=== PATIENT | male | born 1965 | race Caucasian/White ===

== ENCOUNTER 2024-10-25 19:55 | Observation (INO) | payer SELFPAY ==
[~2024-10-25] VITALS: Ht 188 cm; Wt 126.5 kg
[2024-10-25 20:20] LABS: BASOPHILS 0.5 % (0.2-1.2); EOSINOPHILS 1.3 % (0.8-7.0); LYMPHOCYTES 20.0 % (21.8-53.1); MCH 30.6 PG (25.7-32.2); MCHC 33.0 g/dL (32.3-36.5); MCV 92.7 fL (79.0-92.2); MONOCYTES 6.3 % (5.3-12.2); NEUTROPHILS 71.5 % (34.0-67.9); RBC 4.09 M/uL (4.63-6.08)
[2024-10-25] MEDS ORDERED: AMLODIPINE BESYLATE 5 MG TAB PO ONE (20:45)
[2024-10-25 20:50] LABS: ALT (SGPT) 19.0 U/L (14-59); AST (SGOT) 17.0 U/L (15-37); GLOMERULAR FILTRATION RATE,EST 70.0 mL/min (>60); PROTEIN, TOTAL 7.4 g/dL (6.4-8.2); UREA NITROGEN 15.0 mg/dL (7-18)
[2024-10-25 20:52] LABS: BLOOD/HGB, URINE NEGATIVE (Negative); KETONE, URINE NEGATIVE (Negative); LEUK ESTERASE, URINE NEGATIVE (negative); NITRITE, URINE NEGATIVE (negative)
[2024-10-25 21:03] LABS: AMPHETAMINES, URINE NEGATIVE (NEGATIVE); BARBITURATES, URINE NEGATIVE (NEGATIVE); BENZODIAZEPINE, URINE NEGATIVE (NEGATIVE); CANNABINOID, URINE NEGATIVE (NEGATIVE); COCAINE, URINE NEGATIVE (NEGATIVE); ECSTASY, URINE NEGATIVE (NEGATIVE); FENTANYL, URINE NEGATIVE (NEGATIVE); METHADONE, URINE NEGATIVE (NEGATIVE); OPIATES, URINE NEGATIVE (NEGATIVE); OXYCODONE, URINE NEGATIVE (NEGATIVE); PHENCYCLIDINE, URINE NEGATIVE (NEGATIVE)
[2024-10-25] MEDS ORDERED: ASPIRIN 81 MG CHEW PO ONE (22:30)
[2024-10-26] VITALS (14 sets, daily range): BP systolic 105–184; BP diastolic 57–108
[2024-10-26] MEDS ORDERED: COLCHICINE 0.6 MG TAB PO ONE (01:30)
[2024-10-26] MEDS ORDERED: AMOXICILLIN/CLAVULANATE K 875 MG TAB PO ONE (02:00)
[2024-10-26] MEDS ORDERED: HEParin SOD (PORCINE) 5,000 UNIT/ML SYR IV PRN ×3 (02:15)
[2024-10-26] MEDS ORDERED: HEPARIN SOD,PORK IN 0.45% NACL 500 ML IV SCH (02:15)
[2024-10-26] MEDS ORDERED: ACETAMINOPHEN 325 MG TAB PO PRN ×2 (02:30→11:00)
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
--- NOTE | 2024-10-26 04:00 | NUR ---
PATIENT PROVIDED WITH SANDWICH BOX PER REQUEST. PATIENT ICE WATER FILLED. PATIENT VITAL SIGNS STABLE AT THIS TIME. PATIENT UPDATED ON PLAN OF CARE. NO NEEDS AT THIS TIME. CALL LIGHT IN REACH.
--- NOTE | 2024-10-26 05:30 | NUR ---
PATIENT RESTING IN BED WITH EYES CLOSED, RESPIRATIONS EVEN AND UNLABORED. PATIENT REMAINS ON ROOM AIR TOLERTING WELL. PATIENT VITAL SIGNS STABLE. NO NEEDS AT THIS TIME. CALL LIGHT IN REACH.
--- NOTE | 2024-10-26 06:40 | NUR ---
PATIENT UP TO BATHROOM TO VOID. PATIENT STEADY ON FEET. PATIENT DENIES ANY DIZZINESS OR FEELING LIGHT HEADED. PATIENT BACK TO BED. PATIENT HAS NO FURTHER NEEDS AT THIS TIME. CALL LIGHT IN REACH.
[2024-10-26] MEDS ORDERED: LEVOTHYROXINE SODIUM 125 MCG TAB PO SCH (07:00)
[2024-10-26] MEDS ORDERED: AMLODIPINE BESYLATE 5 MG TAB PO SCH (09:00)
--- NOTE | 2024-10-26 09:37 | NUR ---
PATIENT HEADED DOWN FOR MRI OF BRAIN. PT TAKEN OFF HEPARIN GTT AND OFF MONITOR FOR MRI- MD AWARE. PT DOES NOT HAVE ANY DEFICITS CONCERNING FOR A STROKE AT THIS TIME. PT REPORTS FEELING MUCH BETTER TODAY COMPARED TO YESTERDAY. PT'S TOE ON LEFT FOOT, 2ND TOE IS VERY LARGE, SWOLLEN AND DISCOLORED. PT REPORTS HAVING TROUBLES WITH THIS FOR THE LAST YEAR OR LONGER EVEN.
[2024-10-26] MEDS ORDERED: PHARMACY RENAL DOSE ADJUSTMENT 1 DOSE MISC PO SCH (12:00)
--- NOTE | 2024-10-26 12:26 | NUR ---
PATIENT WILL TRANSITION OFF THE HEPARIN GTT AND GO ONTO XARELTO. PENDING PHARMACY DOSING. PT'S MRI DONE AND RESULTS IN CHART. PT WILL TRANSFER TO ROOM 122 AFTER HE COMES OFF HEPARIN GTT. PT NOW ON TELE #1. WILL CONTINUE TO MONITOR. PT REMAINS A CONFIDENTIAL PATIENT PER HIS REQUEST.
--- NOTE | 2024-10-26 12:47 | NUR ---
HEPARIN GTT TAKEN OFF AT THIS TIME AND PO XARELTO TO BE GIVEN. PT WILL TRANSFER TO ROOM 122.
[2024-10-26] MEDS ORDERED: ZESTRIL40 MG PO (12:48)
[2024-10-26] MEDS ORDERED: NORVASC5 MG PO (12:48)
[2024-10-26] MEDS ORDERED: LEVO-T125 MCG PO (12:49)
[2024-10-26] MEDS ORDERED: HYDROXYZINE PA100 MG PO (12:50)
[2024-10-26] MEDS ORDERED: ALLOPURINOL300 MG PO (12:51)
[2024-10-26] MEDS ORDERED: IBUPROFEN800 MG PO (12:52)
--- NOTE | 2024-10-26 12:55 | NUR ---
medications reconciled interviewing patient
--- NOTE | 2024-10-26 13:27 | NUR ---
U/S SOUND IN ROOM AT THIS TIME AND DOING U/S OF LEFT LEG. PT WILL THEN MOVE TO ROOM 122.
--- NOTE | 2024-10-26 13:45 | NUR ---
REPORT RECEIVED FROM DANIEL CCU RN. PT AMBULATES FROM CCU RM 130 TO M/S 122 WITH STEADY GAIT, ENDORSES MILD LIGHT-HEADEDNESS UNCHANGED FROM WHAT HE HAS BEEN EXPERIENCING. THIS RN REMAINS IN ROOM FOR ASSESSMENT AND VS.
--- NOTE | 2024-10-26 14:00 | NUR ---
ASSESSMENT COMPLETED. VS OBTAINED. PT RESTING IN BED ON HIS CELL PHONE AT THIS TIME. NO REQUESTS. CALL LIGHT IN REACH.
[2024-10-26] MEDS ORDERED: LABETALOL HCL 20 MG/4 ML VIAL IV PRN (14:15)
--- NOTE | 2024-10-26 14:16 | NUR ---
UR CLINICAL REVIEW: RANI, MEETS INPT FOR TIA BP 190'S/120'S, IV HEPARIN INITIATED THROUGH NIGHT MEDICAID PENDING INPT 10/26/2024 @ 1057 ORDER MATCHES REG NO AUTH DUE TO MEDICAID STATUS PENDING PLAN TO DC TO HOME TOMORROW. 10/31/2024
--- NOTE | 2024-10-26 15:13 | NUR ---
PT RESTING IN BED WITH EYES CLOSED, MOUTH OPEN, RR EVEN AND UNLABORED. CALL LIGHT IN REACH.
--- NOTE | 2024-10-26 15:17 | NUR ---
MD MILLS GIVES VERBAL ORDER FOR 5MG NORVASC PO DAILY AND 40MG LISINOPRIL PO DAILY STARTING TOMORROW. ORDERS PLACED.
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
[2024-10-26 15:42] LABS: BASOPHILS 0.6 % (0.2-1.2); EOSINOPHILS 1.4 % (0.8-7.0); LYMPHOCYTES 19.3 % (21.8-53.1); MCH 29.8 PG (25.7-32.2); MCHC 32.8 g/dL (32.3-36.5); MCV 90.8 fL (79.0-92.2); MONOCYTES 4.5 % (5.3-12.2); NEUTROPHILS 73.8 % (34.0-67.9); RBC 4.33 M/uL (4.63-6.08)
[2024-10-26 15:55] LABS: GLOMERULAR FILTRATION RATE,EST 101.0 mL/min (>60); UREA NITROGEN 14.0 mg/dL (7-18)
--- NOTE | 2024-10-26 16:06 | NUR ---
PATIENT IN BED AT THIS TIME. CAB STATION ATTENDANT CHARTED HOURLY ROUNDS. CALL LIGHT WITHIN REACH, NO FURTHER NEEDS.
--- NOTE | 2024-10-26 16:37 | NUR ---
PT RESTING IN BED ON CELL PHONE, NO REQUESTS. CALL LIGHT IN REACH.
--- NOTE | 2024-10-26 18:09 | NUR ---
PATIENT IN BED AT THIS TIME. MONTESSORI TODDLER TEACHER CHARTED VITALS AND I&O'S. CALL LIGHT WITHIN REACH, NO FURTHER NEEDS AT THIS TIME.
--- NOTE | 2024-10-26 18:10 | NUR ---
SUPPER TRAY REMOVED. PT DECLINES ANY NEEDS AT THIS TIME. CALL LIGHT IN REACH.
--- NOTE | 2024-10-26 19:25 | NUR ---
GOT REPORT FROM ATHLETIC SCOUT NURSE.
--- NOTE | 2024-10-26 20:34 | NUR ---
Into talk to patient, evening assessment done.Patient given a string cheese and sandwhich box as he is still hungry after dinner. Evening medications given. Patient independent in the room. Fresh drinks given. Pt on RA. Pain controlled. Denies any other cares at this time.
[2024-10-26] MEDS ORDERED: MELATONIN 3 MG TAB PO PRN (21:00)
--- NOTE | 2024-10-26 21:07 | NUR ---
[facility] ARCHITECT OBTAINED VITALS AND I&O. PT STATES NO NEEDS AT THIS TIME. CALL LIGHT WITHIN REACH.
--- NOTE | 2024-10-26 21:22 | EKG ---
[facility] [address] [place], [place] [address] Signed Normal sinus rhythm Normal ECG Confirmed by Colby Mills DO ([id number]) on 10/26/2024 9:21:53 PM Electronically Signed By: COLBY MILLS DO 10/26/242121 PATIENT NAME: MORGAN EAGLE Electrocardiogram DATE OF : 67 PHYSICIAN: COLBY MILLS DO REPORT #: [id number] REPORT IS CONFIDENTIAL AND NOT TO BE RELEASED WITHOUT AUTHORIZATION
--- NOTE | 2024-10-26 21:22 | EKG ---
[facility] [address] [facility] [place], [place] [address] Signed Normal sinus rhythm Normal ECG When compared with ECG of 25-OCT-2024 20:04, (Unconfirmed) No significant change was found Confirmed by Colby Mills DO ([id number]) on 10/26/2024 9:22:23 PM Electronically Signed By: COLBY MILLS DO 10/26/242121 PATIENT NAME: MORGAN EAGLE Electrocardiogram DATE OF : 67 PHYSICIAN: COLBY MILLS DO REPORT #: [id number] REPORT IS CONFIDENTIAL AND NOT TO BE RELEASED WITHOUT AUTHORIZATION
--- NOTE | 2024-10-26 22:59 | NUR ---
patient currently sleeping on his left side. Regular respirations noted.
--- NOTE | 2024-10-27 00:01 | NUR ---
TAKING OVER CARE, RESTING, EYES CLOSED, TELE#[address] IN [address], NO S/SX DISTRESS. TURNS AND REPOSITIONS SELF IN BED.
[2024-10-27 02:00] VITALS: BP 143/85
[2024-10-27 02:12] VITALS: BP 143/85
--- NOTE | 2024-10-27 02:25 | NUR ---
AWAKENS EASILY, ON ROOM AIR, NO C/O CP, TELE#[address] IN PL[address] SR MULTIFORM PVC'S., DENIES CP OR SOB. TURNS AND REPOSTIONS SELF IN BED. COOPERATIVE WITH ASSESSMENT, 2 SL PATENT. FRESH FLUIDS AND REBECCA KETAN GIVEN ON REQUEST. ALERT AND ORIENTED TO ALL
--- NOTE | 2024-10-27 04:30 | NUR ---
RESTING, EYES CLOSED, ON ROOM AIR. TELE#[address] SINUS RHYTHM WITH MULTIFORM PVC'S. TURNS AND REPOSITIONS SELF IN BED, NO S/SX DISTRESS
[2024-10-27 05:27] LABS: BASOPHILS 0.4 % (0.2-1.2); EOSINOPHILS 1.8 % (0.8-7.0); LYMPHOCYTES 24.1 % (21.8-53.1); MCH 30.4 PG (25.7-32.2); MCHC 32.7 g/dL (32.3-36.5); MCV 93.0 fL (79.0-92.2); MONOCYTES 6.5 % (5.3-12.2); NEUTROPHILS 66.9 % (34.0-67.9); RBC 4.01 M/uL (4.63-6.08)
[2024-10-27 05:37] LABS: GLOMERULAR FILTRATION RATE,EST 93.0 mL/min (>60); UREA NITROGEN 13.0 mg/dL (7-18)
[2024-10-27 05:45] VITALS: BP 145/85
--- NOTE | 2024-10-27 05:48 | NUR ---
NUDE MODEL OBTAINED VITALS AND I&O. PT STATES NO FURTHER NEEDS AT THIS TIME. CALL LIGHT WITHIN REACH.
--- NOTE | 2024-10-27 06:55 | NUR ---
awake, on room air, no c/o cp. tele in place. up to brp, voided, tolerating liquids well, playing with phone, no c/o pain or discomfort, pleasant and cooperative
[2024-10-27] MEDS ORDERED: LEVOTHYROXINE SODIUM 100 MCG TAB PO SCH (07:00)
--- NOTE | 2024-10-27 07:15 | NUR ---
REPORT RECIEVED FROM JACK SAINI. PATIENT RESTING IN BED AND IS WITHOUT ANY NEEDS AT THIS TIME. CALL LIGHT AND PERSONAL BELONGINGS ARE WITHIN REACH.
[2024-10-27 08:28] VITALS: BP 132/88
--- NOTE | 2024-10-27 08:30 | NUR ---
PATIENT MEDICATED PER EMAR. VITAL SIGNS TAKEN AND ARE STABLE. PATIENT WITHOUT FURTHER NEEDS AT THIS TIME. CALL LIGHT AND PERSONAL BELONGINGS ARE WITHIN REACH.
[2024-10-27 08:38] LABS: THYROXINE 4.6 ug/dL (4.50-11.70)
[2024-10-27] MEDS ORDERED: COLCHICINE 0.6 MG TAB PO SCH (09:00)
[2024-10-27] MEDS ORDERED: AMLODIPINE BESYLATE 5 MG TAB PO SCH (09:00)
--- NOTE | 2024-10-27 09:30 | NUR ---
PATIENT ASSESSMENT COMPLETED. DR MILLS WITH VERBAL ORDERS TO REMOVE PATIENT'S IV SO THAT PATIENT CAN SHOWER, PER PATIENT REQUEST. IV X2 REMOVED, CATH TIP INTACT, NO REDNESS OR SWELLING NOTED AT IV SITE, PRESSURE DRESSING OF GAUZE AND COBAN APPLIED. PATIENT WITHOUT FURTHER NEEDS AT THIS TIME. CALL LIGHT AND PERSONAL BELONGINGS ARE WITHIN REACH.
--- NOTE | 2024-10-27 09:41 | NUR ---
INTO SEE PATIENT. PATIENT SAYS HIS CREDIT CARD HAS BEEN SHUT OFF AND THAT HE NEEDS A RIDE TO [employer]. PATIENT STATES HIS CAMPER IS OUT THERE AND HE HAS ALL HIS BELONGINGS IN HIS ROOM. TAXI TICKET GIVEN. PATIENT TO CALL [facility] ONCE STATE INSURANCE IS NOT PENDING FOR AN APPOINTMENT. NO FUTHER CM NEEDS.
[2024-10-27 10:26] VITALS: BP 149/79
--- NOTE | 2024-10-27 10:26 | NUR ---
THIS TUMBLER DRIER OPERATOR GOT PATIENTS DISCHARGE VITALS. CALL LIGHT WITHIN REACH, NO FURTHER NEEDS.
[2024-10-27] MEDS ORDERED: XARELTO15 MG PO (10:29)
[2024-10-27] MEDS ORDERED: NORVASC5 MG PO (10:30)
[2024-10-27] MEDS ORDERED: LISINOPRIL20 MG PO (10:30)
[2024-10-27] MEDS ORDERED: HYDROXYZINE PAM25 MG PO (10:31)
[2024-10-27] MEDS ORDERED: COLCRYS0.6 MG PO (10:31)
[2024-10-27] MEDS ORDERED: LEVOTHYROXINE100 MCG PO (10:32)
[2024-10-27] MEDS ORDERED: ALLOPURINOL300 MG PO (10:33)
== END 2024-10-27 10:56 | disposition home or self-care (01) ==
LOC: ED 19:55 → MS 19:57 → CCU 19:57 → MS 10-26 13:46
PROVIDERS: Internal Medicine; ADMIT Student in an Organized Health Care Education/Training Program; ATTEND Student in an Organized Health Care Education/Training Program
DX: I16.0 Hypertensive urgency (principal); I27.82 Chronic pulmonary embolism; I77.74 Dissection of vertebral artery; R79.89 Other specified abnormal findings of blood chemistry; M10.9 Gout, unspecified; E03.9 Hypothyroidism, unspecified; I10 Essential (primary) hypertension; Z91.148 Patient's other noncompliance with medication regimen for other reason; Z79.890 Hormone replacement therapy; Z79.899 Other long term (current) drug therapy; Z91.030 Bee allergy status; Z91.038 Other insect allergy status
CPT/HCPCS: 36415; 70450; 70496; 70498; 70551; 71045; 71275; 73660; 80048; 80053; 80307; 81003; 83735; 84436; 84443; 84484; 84550; 85025; 85379; 85730; 93005; 93010; 93971; A9270; J0360; J1644; Q0177; Q9967